=== PATIENT | male | born 1965 | race Caucasian/White ===

== ENCOUNTER 2019-05-31 06:21 | Day surgery (SDC) | payer OTHER ==
[~2019-05-31 06:21] MED LIST: CEFAZOLIN SODIUM IN 0.9 % NACL 2 GM/100 ML BAG IV ONE
--- NOTE | 2019-05-31 06:39 | ANESTHESIA ---
Pre-Anesthesia VS, & Labs - Diagnosis fractured mandible - Procedure orif of mandible - NPO >8 hours Home Medications and Allergies Home Medications: Ambulatory Orders Oxycodone HCl 2 tsp PO Q4H PRN 05/28/19 Oxycodone HCl 2 tsp PO Q4H PRN 05/28/19 Allergies/Adverse Reactions: Allergies Allergy/AdvReac Type Severity Reaction Status Date / Time No Known Drug Allergies Allergy Verified 05/28/19 15:41 Anes History & Medical History - Anesthetic History Anesthesia Complications: reports: No previous complications Family history of Anesthesia Complications: Denies Family history of Malignant Hyperthermia: Denies - Medical History Cardiovascular: reports: None, Hypertension Pulmonary: reports: None Gastrointestinal: reports: None Urinary: reports: None Musculoskeletal: reports: None Endocrine/Autoimmune: reports: None Skin: reports: None Exam General: Alert, Oriented x3, Cooperative, No acute distress Dental: Loose/Frag Mouth Openin Fingerbreadth Neck Mobility: Normal Mallampati classification: II Thyromental Distance: 4-6 cm Respiratory: Lungs clear, Normal breath sounds, No respiratory distress, No accessory muscle use Cardiovascular: Regular rate, Normal S1, Normal S2, No murmurs Plan Anesthesia Type: General Consent for Procedure(s) Verified and Reviewed: No Code Status: Attempt Resuscitation ASA classification: 2-Mild systemic disease Is this case an emergency?: No
[2019-05-31] MEDS ORDERED: LACTATED RINGERS 1,000 ML IV ONE ×4 (07:06→12:15)
[2019-05-31] MEDS ORDERED: BACITRACIN OINT TOP ONE (07:11)
[2019-05-31] MEDS ORDERED: EPINEPHrine 1 MG/ML AMP ONE ×2 (07:12→07:13)
[2019-05-31 07:14] LABS: BASOPHILS # (AUTO) 0.1 10^3/uL (0.0-0.1); BASOPHILS % (AUTO) 1.2 %; EOSINOPHILS # (AUTO) 0.2 10^3/uL (0.0-0.7); EOSINOPHILS % (AUTO) 3.1 %; HGB - HEMOGLOBIN 14.9 g/dL (14.0-18.0); LYMPHOCYTES # (AUTO) 2.4 10^3/uL (1.5-3.5); LYMPHOCYTES % (AUTO) 45.8 %; MEAN CORPUSCULAR HGB CONC 34.7 g/dL (32.0-36.0); MEAN CORPUSCULAR VOLUME 89.6 fL (80.0-94.0); MEAN PLATELET VOLUME 9.5 fL (7.4-11.4); MONOCYTES # (AUTO) 0.5 10^3/uL (0.0-1.0); MONOCYTES % (AUTO) 9.6 %; NEUTROPHILS # (AUTO) 2.1 10^3/uL (1.5-6.6); NEUTROPHILS % (AUTO) 39.9 %; PLT - PLATELET COUNT 253 10^3/uL (130-450); RED CELL DISTRIBUTION WIDTH 11.4 % (12.0-15.0); WHITE BLOOD COUNT 5.2 x10^3/uL (4.8-10.8)
[2019-05-31] MEDS ORDERED: LIDOCAINE MPF 2%-EPI 1:200000 20 ML VIAL ONE (07:14)
[2019-05-31] MEDS ORDERED: OXYMETAZOLINE HCL 100 SPRAYS BOTTLE NAS ONE (07:16)
[2019-05-31] MEDS ORDERED: CHLORHEXIDINE GLUCONATE 15 ML UDC PO ONE ×2 (07:17→08:57)
[2019-05-31] MEDS ORDERED: BUPIVACAINE 0.5%-EPI 1:200000 PF 30 ML VIAL ONE (08:58)
[2019-05-31] MEDS ORDERED: LIDOCAINE-MPF 2% 5 ML VIAL IM ONE (09:00)
[2019-05-31] MEDS ORDERED: ROCURONIUM 50 MG/5 ML VIAL IVP ONE (09:00)
[2019-05-31] MEDS ORDERED: ACETAMINOPHEN 1,000 MG/100 ML 100 ML IV ONE (09:00)
[2019-05-31] MEDS ORDERED: fentaNYL 100 MCG/2 ML VIAL IVP ONE (09:00)
[2019-05-31] MEDS ORDERED: ePHEDrine 50 MG/ML VIAL IVP ONE (09:00)
[2019-05-31] MEDS ORDERED: KETOROLAC 30 MG/ML VIAL IVP ONE (09:00)
[2019-05-31] MEDS ORDERED: PROPOFOL 200 MG/20 ML VIAL IVP ONE (09:00)
[2019-05-31] MEDS ORDERED: ONDANSETRON 4 MG/2 ML VIAL IVP ONE (09:00)
[2019-05-31] MEDS ORDERED: CEFAZOLIN SODIUM IN 0.9 % NACL 2 GM/100 ML BAG IV ONE (09:00)
[2019-05-31] MEDS ORDERED: LIDOCAINE 2%-EPI 1:100000 20 ML MDV SUBQ ONE ×2 (09:01)
[2019-05-31] MEDS ORDERED: BUPIVACAINE 0.5%-EPI 1:200000 PF 30 ML VIAL SUBQ ONE (09:02)
[2019-05-31] MEDS ORDERED: BUPIVACAINE 0.25%-EPI 1:200000 PF 30 ML VIAL SUBQ ONE (09:02)
[2019-05-31] MEDS ORDERED: oxyCODONE 5 MG TABLET PO PRN (12:03)
[2019-05-31] MEDS ORDERED: ONDANSETRON 4 MG/2 ML VIAL IVP PRN (12:03)
[2019-05-31] MEDS ORDERED: HYDROmorphone 0.5 MG/0.5 ML SYRINGE ONE ×2 (12:06→12:34)
[2019-05-31] MEDS: HYDROmorphone 1 MG/ML CARPUJECT ONE ×3 (12:12→12:28)
[2019-05-31] MEDS ORDERED: fentaNYL 100 MCG/2 ML VIAL ONE (12:35)
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
[2019-05-31 15:01] VITALS: BP 155/69
== END 2019-05-31 06:22 | disposition home or self-care (01) ==
LOC: SDS 06:21
PROVIDERS: ATTEND Dentist Oral and Maxillofacial Surgery
PROC: 2W31X9Z Immobilization of Face using Wire (ICD-10-PCS; 2019-05-31)
PROC: 0NSTXZZ Reposition Right Mandible, External Approach (ICD-10-PCS; 2019-05-31)
PROC: 2W31X9Z Immobilization of Face using Wire (ICD-10-PCS; 2019-05-31)
PROC: 0NSV04Z Reposition Left Mandible with Internal Fixation Device, Open Approach (ICD-10-PCS; principal; 2019-05-31 07:30)
DX: S02.622A Fracture of subcondylar process of left mandible, initial encounter for closed fracture (principal); S02.642A Fracture of ramus of left mandible, initial encounter for closed fracture; S02.66XB Fracture of symphysis of mandible, initial encounter for open fracture; S02.611A Fracture of condylar process of right mandible, initial encounter for closed fracture; V19.3XXA Pedal cyclist (driver) (passenger) injured in unspecified nontraffic accident, initial encounter; Y93.55 Activity, bike riding; Y99.8 Other external cause status; I10 Essential (primary) hypertension
CPT/HCPCS: 21453; 21470; 85025; A9270; C1713; J0131; J0690; J1170; J7120